=== PATIENT | female | born 1940 | race Caucasian/White ===

== ENCOUNTER 2021-06-15 15:10 | Inpatient (IN) | payer OTHER ==
[~2021-06-15] VITALS: Ht 162.6 cm; Wt 40.9 kg
--- NOTE | 2021-06-15 23:21 | NUR ---
Assumed care on 06/15/21 @ 1915, in bed 526 B, eyes closed, respirations even and unlabored. Awakens to touch, Noted to be hard of hearing. Information from [facility] indicates patient came to their facility with one hearing aide, and it has been lost since then. Patient has DPOA, her daughter and daughter has signed a DNR, facility is waiting on the physician to sign, then it will be faxed tomorrow by [facility]IN[facility]. Patient able to stand and transfer to [facility], continent of urine. Positive Covid on 05/30/21. Regular diet, x1 assist to ambulate with walker, however patient needs reminder to use walker. Has had multiple falls recently, with head injuries. x2 Pressure sores noted on spine, skin tear noted to right arm. Skin on bottom intact. Multiple sores on lower extemities, scabs on knees bilat, skin is broken on top left and top right arch of foot. Second toe on left foot has a break in the skin. Bunyons bilat each have a sore. Patient's hearing is so compromised that she is unable to understand spoken word, and unable to answer mental health questions. Returned to sleep after assessment. Bed is in low position, bed alarm is set. Will continue to monitor for safety and comfort as per unit protocol.
[2021-06-16 05:28] LABS: CHOLESTEROL 168 mg/dL (<200); HDL CHOLESTEROL 60 mg/dL (>40); LDL CHOLESTEROL 91 mg/dL (<100); SERUM ASSESSMENT Clear; TC:HDL 2.8 Ratio (Not establshd); TRIGLYCERIDE 89 mg/dL (<150); VLDL 18 mg/dL (<40)
[2021-06-16 08:45] VITALS: BP 133/69
[2021-06-16 08:48] VITALS: BP 133/69
--- NOTE | 2021-06-16 08:51 | NUR ---
Pt was COVID positive on 05/30/21 and documentation has been placed in pt's chart.
[2021-06-16 10:47] LABS: CALCIUM 8.6 mg/dL (8.5-10.1); CREATININE 1.2 mg/dL (0.6-1.0); MAGNESIUM 2.6 mg/dL (1.8-2.4); POTASSIUM 4.5 mmol/L (3.5-5.1)
[2021-06-16 10:57] VITALS: BP 133/69
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
--- NOTE | 2021-06-16 18:48 | NUR ---
Assumed pt care from overnight shift this am. Pt presented alert and oriented to self only during this time, and would have moments of confusion where she did not recognize her own name when called. Pt presented hostile and frustrated with staff, yelling at staff and throwing fruit and other food when redirected by staff. During this shift, pt refused to use walker despite prompting, and was reminded multiple times to use walker as pt has had prior falls. Would become angry with staff during this time, and yell if redirected. Pt could not voice answers to questions about depression/anxiety/si/hi/hallucinations, though could be seen talking to self, asking for friends that she stated had already , and reaching for objects not there. Pt would wander hallways and stay by door trying to leave- pt would push and hit door when unable to leave while yelling. Pt redirected during these times. Pt unable to stop aggressive behavior of hitting and screaming despite multiple redirection attempts and prior prn medication. Pt given shot of olanzapine during this time as pt did not want pill, screaming at staff and knocking pill out of staff's hand. Manual hold ordered but not needed during this time. Pt continues to need frequent redirection and continues to walk and pace hallways but has become less agitated and aggressive with staff. Pt re-oriented to environment frequently. No si/hi statements voiced despite behavior. Could be seen talking to self during this time. Has been talking to peers on occasion. Lung sounds clear. Bowel sounds active. Refused wound care pictures to be taken earlier in shift, and refused wound care consult despite medication. Passed along to dissolver operator this information as pt still requires pictures of wounds for follow up care. Presents hostile to cares at moment despite less agitation after medication. No further concerns at this time.
--- NOTE | 2021-06-17 00:38 | NUR ---
At onset of casino shift manager pt was sitting in day room. This shift pt was alert and only oriented to self. Pt is very disorganized, confused, impulsive. Pt requires frequent redirection. Pt walks on the unit, but does not remember to use her walker. Pt's speech has flight of ideas and at times in nonsensical. Pt took her medications crushed in pudding and was compliant with vital signs. Pt was becoming increasingly restless and impulsive later in the evening. Pt crawled under a table in the day room. Received an IM 2.5 Zyprexa at 2305. Pt was placed into bed after injection, but was still getting out of bed. Pt was placed into leanne chair in day room. Pt is a high fall risk. Fall precautions are in place. Will continue to monitor.
[2021-06-17 06:07] LABS: GLYCOHEMOGLOBIN (HGB A1C) 5.5 % (4.8-5.6)
[2021-06-17 07:48] VITALS: BP 166/76
--- NOTE | 2021-06-17 13:03 | NUR ---
BOAT DECKHAND paged MD Gamez @1300; Patient noted getting up multiple times, patient is unable to redirected by staff after multiple attempts. Patient has had multiple falls prior to admission. Patients gait is unsteady, weak, and visualized grabbing furniture when she does not use her walker. Patient is disoriented *4.
[2021-06-17 13:53] VITALS: BP 166/76
--- NOTE | 2021-06-17 16:43 | NUR ---
Emailed Welcome email to [email or web address]
[2021-06-17 19:50] VITALS: BP 106/80
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
--- NOTE | 2021-06-18 02:05 | NUR ---
At onset of corrections corporal pt was sitting in leanne chair in day room close to boilermaker. This shift pt was alert and oriented to self, although pt does not always respond to her name being called. Pt was compliant with taking meds crushed in pudding. Pt ate an evening snack. Pt's speech is nonsensical and pt does not answer questions appropriately. Pt was placed into bed by boilermaker. At this time pt is sleeping well. No signs of agitaion at this time. Overall pt was calm and cooperative. Requiring frequent redirection. Pt is a high fall risk. Fall precautions are in place. Will continue to monitor.
[2021-06-18 06:10] LABS: ABSOLUTE NEUTROPHILS 3.8 thou/uL (1.4-8.2); BASOPHILS 0.6 % (0.0-2.0); EOSINOPHILS 5.1 % (0.0-3.0); HEMATOCRIT 35.7 % (37.0-47.0); HEMOGLOBIN 11.9 gm/dL (12.0-15.0); LYMPHOCYTES 14.9 % (24.0-44.0); MCH 33.3 pg (26.0-34.0); MCHC 33.3 g/dL (28.0-37.0); MCV 100.1 fL (80.0-100.0); MONOCYTES 13.5 % (1.0-8.0); PLATELET COUNT 282 thou/uL (150-400); POLYS 65.9 % (36.0-66.0); RBC 3.57 mil/uL (4.20-5.00); RDW 15.6 % (10.5-14.5); WBC 5.8 thou/uL (4.0-11.0)
[2021-06-18 06:16] LABS: CALCIUM 8.8 mg/dL (8.5-10.1); MAGNESIUM 2.2 mg/dL (1.8-2.4); POTASSIUM 4.1 mmol/L (3.5-5.1)
[2021-06-18 09:48] VITALS: BP 153/78
--- NOTE | 2021-06-18 11:32 | NUR ---
Alerts to name only. No response to questions about SI/HI. No speech/behavior suggestive of SI/HI. Initially restless needing frequent redirection but then fell asleep in recliner. Took meds crushed in apple sauce. Breath sounds clear. Reg HR auscultated. Color pink with brisk capillary refill and palpable peripheral pulses. Active bowel sounds over soft, rounded abdomen. Brief dry.
--- NOTE | 2021-06-18 17:10 | NUR ---
Phone message received from Janeen GROSS (cell: [phone], )
[2021-06-18 19:51] VITALS: BP 140/58
--- NOTE | 2021-06-18 23:28 | NUR ---
At onset of shift supervisor film processing pt was sitting in leanne chair in day room. This shift pt was alert and oriented to self only. Pt sometimes answers to her name, but other times will not. Pt is compliant with taking her medication crushed in yogurt. Pt does eat well when given food. Pt cannot answer psych questions appropriately. No signs of acute distress and not signs of SI or HI. Pt was placed into bed by family worker. Pt ambulates with assistance and needs reminding to use her walker. Pt is high fall risk. Fall precautions are in place. Will continue to monitor.
[2021-06-19 10:45] VITALS: BP 142/77
--- NOTE | 2021-06-19 11:07 | NUR ---
Phone call to GINNY Francis at [facility]. Provided update for patient. NEFTALY sent updates to the facility but GINNY reported to not having received them. NEFTALY will forward to her email.
--- NOTE | 2021-06-19 11:41 | NUR ---
Alerts to name only. Denies SI/HI. Slightly restless this AM but calmed down after breakfast. Breath sounds clear. Reg HR auscultated. Color pink with brisk capillary refill and palpable peripheral pulses. No edema noted. Active bowel sounds over soft, rounded abdomen. No BM documented since 06/15. Will give milk of magnesia. Sitting in chair all AM.
[2021-06-19 20:06] VITALS: BP 142/58
--- NOTE | 2021-06-20 03:16 | NUR ---
PT BEEN RESTING IN BED IN NO ACUTE DISTRESS.A/O TO SELF.PT AT THE BEGINNING OF THE SHIFT WAS VERY RESTLESS AND HAVING DISORGANIZED THOUGHTS,NOT FOLLOWING COMMANDS.PT TOOK MEDS CRUSHED IN APPLESAUCE.PT WAS MORE RELAXED AND CALM AFTER MEDS WERE GIVEN AND THEN ASSISTED TO BED ANDS SHE HAS BEEN SLEEPING SINCE THEN.NO S/SX OF PAIN NOTED.ASSESSMENT COMPLETED DOCUMENTED.
[2021-06-20 08:52] VITALS: BP 157/82
[2021-06-20 09:00] VITALS: BP 157/82
--- NOTE | 2021-06-20 16:23 | NUR ---
Updates faxed to Janessa Levy
--- NOTE | 2021-06-20 17:31 | NUR ---
Assumed pt care this morning from overnight shift. Pt presented restless and alert and oriented to self only during this time, though pt realised that she was in hospital when asked. Pt placed in gerichair for safety concerns as pt would not walk with walker, and was unsteady when attempting to walk. Pt agitated and aggressive with staff, trying to hit staff and get out of gerichair restlessly. Pt redirected during this time. Took all medications crushed in pudding, and fed by staff as pt did not want to eat independently while prompted. Pt denied depression and anxiety, but could not answer other questions, drifting off and staring blankly when asked. Pt presented with internal stimuli and could be seen speaking to self. Pt lung sounds clear. Bowel sounds active. Last BM 06/19 per report. Prn tylenol given for discomfort as pt noted to be fidgeting and moving. Hair care done during this time. Lotion applied. Wound on arm covered with gauze. Wound pictures taken to be added to chart from slight superficial tears pt had upon arrival. Shortly before 1300, prn olanzapine IM given. No manual hold needed. Pt presented restless during this time, starting to kick staff, scream, and present with further internal stimuli. After administration, pt significantly calmer though did taken off gauze from wound site at this time. Site cleaned and left undressed. Pt repositoned for comfort. Currently sitting in activity area. No further concerns at this time.
[2021-06-20 19:32] VITALS: BP 136/60
[2021-06-21 08:00] VITALS: BP 140/73
--- NOTE | 2021-06-21 16:35 | NUR ---
Emailed medication list to Joann ELENA. Joann responded via email that she was not going to drop by les Levy in person but that she would mail the payment in.
--- NOTE | 2021-06-21 18:48 | NUR ---
PT ALERT AND ORIENTED TIMES ONE. AGITATED FOR MOST OF THE SHIFT. PRN MEDICATIONS GIVEN TWICE TODAY. VSS. PT TOLERATES MEDS AND MEALS. LITTLE INTERACTIONS WITH PEERS. WILL CONTINUE TO MONITOR.
[2021-06-21 19:30] VITALS: BP 155/79
[2021-06-21 20:21] VITALS: BP 155/79
--- NOTE | 2021-06-21 21:42 | NUR ---
PATIENT CARE WAS RESUMED AT 1900. SHE WAS THE DINING AREA. LUNGS ARE CLEAR. TOOK HER MED.ASSISTED WITH [facility] AND TRANSFER. DENIES PAINS, SI/AVH/HI.
== END 2021-06-22 | DRG 884 ==
LOC: SBH
PROVIDERS: Nurse Practitioner; Nurse Practitioner Psychiatric/Mental Health; ADMIT Psychiatry & Neurology Psychiatry; ATTEND Psychiatry & Neurology Psychiatry
DX: F03.91 Unspecified dementia, unspecified severity, with behavioral disturbance (principal); L89.103 Pressure ulcer of unspecified part of back, stage 3; E43 Unspecified severe protein-calorie malnutrition; Z68.1 Body mass index [BMI] 19.9 or less, adult; R29.6 Repeated falls; F01.50 Vascular dementia, unspecified severity, without behavioral disturbance, psychotic disturbance, mood disturbance, and anxiety; F41.9 Anxiety disorder, unspecified; I10 Essential (primary) hypertension; M81.0 Age-related osteoporosis without current pathological fracture; E78.5 Hyperlipidemia, unspecified; Z66 Do not resuscitate; E03.9 Hypothyroidism, unspecified; S41.111A Laceration without foreign body of right upper arm, initial encounter; R53.81 Other malaise; W18.39XA Other fall on same level, initial encounter; Y93.89 Activity, other specified; Z85.3 Personal history of malignant neoplasm of breast; Y92.89 Other specified places as the place of occurrence of the external cause; Y99.8 Other external cause status
CPT/HCPCS: 10880

== ENCOUNTER 2021-06-15 16:33 | Emergency (ER) | payer OTHER ==
[~2021-06-15] VITALS: Ht 162.6 cm; Wt 49.9 kg
[2021-06-15 17:10] LABS: ABSOLUTE NEUTROPHILS 7.6 thou/uL (1.4-8.2); BASOPHILS 0.3 % (0.0-2.0); HEMATOCRIT 35.6 % (37.0-47.0); HEMOGLOBIN 11.9 gm/dL (12.0-15.0); LYMPHOCYTES 5.8 % (24.0-44.0); MCH 33.6 pg (26.0-34.0); MCHC 33.4 g/dL (28.0-37.0); MCV 100.5 fL (80.0-100.0); MONOCYTES 4.3 % (1.0-8.0); PLATELET COUNT 315 thou/uL (150-400); POLYS 89.6 % (36.0-66.0); RBC 3.55 mil/uL (4.20-5.00); RDW 15.3 % (10.5-14.5); WBC 8.5 thou/uL (4.0-11.0)
[2021-06-15 17:26] LABS: ANION GAP 4 mmol/L (7-16); BUN 29 mg/dL (7-18); CHLORIDE 106 mmol/L (98-107); CO2 28 mmol/L (21-32); CREATININE 1.3 mg/dL (0.6-1.0); GLUCOSE 160 mg/dL (74-106); SODIUM 138 mmol/L (136-145)
[2021-06-15 17:31] LABS: ALBUMIN 2.9 g/dL (3.4-5.0); SALICYLATE < 2.8 mg/dL (2.8-20.0); SGOT 21 U/L (15-37); SGPT 21 U/L (14-59); TOTAL BILIRUBIN 0.2 mg/dL (0.2-1.0); TOTAL PROTEIN 6.2 g/dL (6.4-8.2)
[2021-06-15 17:41] LABS: URINE BILIRUBIN NEGATIVE (Negative); URINE BLOOD NEGATIVE (Negative); URINE CLARITY CLEAR; URINE COLOR YELLOW; URINE GLUCOSE-RANDOM* NEGATIVE (Negative); URINE KETONES NEGATIVE (Negative); URINE LEUKOCYTES-REFLEX NEGATIVE (Negative); URINE NITRITE-REFLEX NEGATIVE (Negative); URINE PROTEIN (DIPSTICK) NEGATIVE (Negative); URINE UROBILINOGEN 0.2 E.U./dl (0.2-1.0)
[2021-06-15 17:53] LABS: AMP/METHAMP Negative (Negative); BARBITURATES Negative (Negative); BENZODIAZEPINES Negative (Negative); COCAINE Negative (Negative); METHADONE Negative (Negative); OPIATES Negative (Negative); PCP Negative (Negative)
[2021-06-15 18:17] VITALS: BP 132/64
== END 2021-06-15 18:21 ==
LOC: ER 16:33
PROVIDERS: Student in an Organized Health Care Education/Training Program
DX: F03.90 Unspecified dementia, unspecified severity, without behavioral disturbance, psychotic disturbance, mood disturbance, and anxiety (principal)